=== PATIENT | male | born 1965 | race Caucasian/White ===

== ENCOUNTER 2020-08-03 18:45 | Emergency (ER) | payer OTHER ==
[~2020-08-03] VITALS: Ht 177.8 cm; Wt 90.9 kg
[~2020-08-03 18:45] MED LIST: AFRIN 15 ML15 ML NS
[2020-08-03 18:57] VITALS: TEMP 99.9
[2020-08-03 19:30] LABS: HEMATOCRIT 43.5 % (42.0-52.0); HEMOGLOBIN 15.5 g/dl (13.5-18.0); MEAN CELL VOLUME 79 fl (80.0-100.0); MEAN CORPUSCULAR HEMOGLOBIN 28 pg (27.0-31.0); MEAN CORPUSCULAR HGB CONC 36 g/dl (33.0-37.0); MEAN PLATELET VOLUME 9.5 fl (7.4-10.4); PLATELET COUNT 191 K/mm3 (130-400); RED BLOOD COUNT 5.49 M/mm3 (4.20-5.60); REDCELL DISTRIBUTION WIDTH-CV 11.7 % (11.5-14.5)
[2020-08-03 19:42] LABS: ARTERIAL BLD GAS TCO2 CT 19.7; ARTERIAL BLOOD GAS BASE EXCESS -2.1 (-2-2); ARTERIAL BLOOD GAS HCO3 18.9 meq/L (22-26); ARTERIAL BLOOD GAS PCO2 24.4 mmHg (35-45); ARTERIAL BLOOD GAS pH 7.51 (7.35-7.45)
[2020-08-03 19:42] LABS: ALANINE AMINOTRANSFERASE 63 U/L (4-49); ALBUMIN 3.9 gm/dL (3.5-5.0); ALKALINE PHOSPHATASE 263 U/L (50-136); ANION GAP 11 mmol/L (7-16); AST,SGOT 77 U/L (15-37); BILIRUBIN,TOTAL 1.4 mg/dL (0.0-1.0); BLOOD UREA NITROGEN 15 mg/dL (9-20); CARBON DIOXIDE 22 mmol/L (22-30); CHLORIDE 98 mmol/L (98-107); CREATININE, serum 0.57 (0.66-1.25); GLUCOSE 283 mg/dL (74-106); POTASSIUM 4.3 mmol/L (3.4-5.0); SODIUM 130 mmol/L (137-145); TOTAL PROTEIN 7.7 gm/dL (6.4-8.2)
[2020-08-03 19:43] LABS: ARTERIAL BLOOD GAS PO2 128.6 mmHg (80-100)
[2020-08-03 19:57] LABS: TROPONIN-I < 0.012 ng/mL (0.000-0.035)
[2020-08-03 20:14] LABS: BAND 2 % (0-10); LYMPHOCYTE 4 % (20.0-51.0); MICROCYTOSIS 1+; NEUTROPHILS 90 % (42.0-75.2)
[2020-08-03 20:15] LABS: PLATELET ESTIMATE NORMAL (NORMAL)
[2020-08-03 22:05] VITALS: BP 151/96; PULSE 76
== END 2020-08-03 22:09 | disposition other institution (70) ==
LOC: COL.ER 18:45
PROVIDERS: Emergency Medicine; Nurse Practitioner Primary Care
DX: U07.1 COVID-19 (principal); Z87.891 Personal history of nicotine dependence
CPT/HCPCS: J0696; J1100; J1650; J2270; J2405; J7030; Q9967